=== PATIENT | female | born 1960 | race Caucasian/White ===

== ENCOUNTER 2017-03-13 11:49 | Emergency (ER) | payer MEDICAID ==
--- NOTE | 2017-03-13 12:08 | EDPHY ---
H & P Stated Complaint: FLU LIKE SYMPTOMS, JAUNDICE. SPRAINED LEFT FOOT Time Seen by Provider: 03/13/17 12:04 HPI/ROS: CHIEF COMPLAINT: Generalized weakness, cough HISTORY OF PRESENT ILLNESS: The patient has a history of HIV and hepatitis-C. She is currently not on anti-retroviral medications. She previously had an undetectable viral load. The patient was seen at [facility] several days ago for evaluation of a left foot sprain and had a negative x-ray at that point time. The patient attempted to reestablish care at the [facility] today but was referred to the ED as she reported generalized weakness, cough and questionable jaundice. The patient takes no regular medications. She denies any fever. She has no complaints of significant pain. She denies dysuria. REVIEW OF SYSTEMS: A comprehensive 10 point review of systems is otherwise negative aside from elements mentioned in the history of present illness. Source: Patient Exam Limitations: No limitations - Personal History Current Tetanus/Diphtheria Vaccine: Yes Current Tetanus Diphtheria and Acellular Pertussis (TDAP): Yes - Medical/Surgical History Hx Asthma: No Hx Chronic Respiratory Disease: No Hx Diabetes: No Hx Cardiac Disease: No Hx Renal Disease: No Hx Cirrhosis: No Hx Alcoholism: No Hx HIV/AIDS: No Hx Splenectomy or Spleen Trauma: No Other PMH: HEP C, HIV - Social History Smoking Status: Never smoked - Physical Exam Exam: General Appearance: Alert, no distress Eyes: Pupils equal and round no pallor or injection ENT, Mouth: Mucous membranes moist Respiratory: There are no retractions, lungs are clear to auscultation Cardiovascular: Regular rate and rhythm Gastrointestinal: Abdomen is soft and nontender, no masses, bowel sounds normal Neurological: A&O, normal motor function, normal sensory exam, normal cranial nerves Skin: Warm and dry, no rashes Musculoskeletal: Neck is supple nontender Extremities: symmetrical, full range of motion Constitutional: Initial Vital Signs Temperature (C) 36.7 C 03/13/17 11:59 Heart Rate 89 03/13/17 11:59 Respiratory Rate 17 03/13/17 11:59 Blood Pressure 141/78 H 03/13/17 11:59 O2 Sat (%) 95 03/13/17 11:59 O2 Delivery Mode Room Air Allergies/Adverse Reactions: No Known Allergies Allergy (Unverified 03/13/17 11:54) Home Medications: Medication Instructions Recorded TRIMPEX 100MG (*) 03/13/17 Medical Decision Making - Diagnostics Imaging Results: Imaging Impressions Chest X-Ray 03/13/17 13:02 Impression: Normal chest x-ray. ED Course/Re-evaluation: The patient presents to the ED with multiple complaints including cough, malaise and subjective jaundice. The patient is currently not on medications for HIV or hepatitis-C. She has stable vital signs and is well-appearing. I appreciate no significant ascites on her exam. Screening laboratory studies demonstrate no evidence of significant leukocytosis, anemia, coagulopathy, hepatitis or evidence of hemolysis. The patient has had a cough and reported history of pneumonia remotely. Her x- ray today demonstrates no evidence of an obvious infiltrate. The patient's flu test is negative. This point time I feel the patient is well-appearing and can be discharged home. She will be treated presumptively for acute bronchitis with an albuterol inhaler. She is referred to the [facility] to reestablish primary care. She will be discharged home with customary aftercare instructions and return precautions. Differential Diagnosis: Differential diagnosis considered includes pneumonia, influenza, hepatitis, peritonitis, anemia, renal failure - Data Points Laboratory Results: Laboratory Results 03/13/17 12:29 03/13/17 12:29 03/13/17 03/13/17 03/13/17 12:29 12:29 12:29 WBC RBC Hgb Hct MCV MCH MCHC RDW Plt Count MPV Neut % (Auto) Lymph % (Auto) Platte % (Auto) Eos % (Auto) Baso % (Auto) Nucleat RBC Rel Count Absolute Neuts (auto) Absolute Lymphs (auto) Absolute Monos (auto) Absolute Eos (auto) Absolute Basos (auto) Absolute Nucleated RBC Immature Gran % Immature Gran # PT 13.6 SEC SEC (12.0-15.0) INR 1.02 (0.83-1.16) APTT 30.8 SEC SEC (23.0-38.0) Sodium 141 mEq/L mEq/L (135-145) Potassium 4.8 mEq/L mEq/L (3.5-5.2) Chloride 105 mEq/L mEq/L (97-110) Carbon Dioxide 22 mEq/l mEq/l (22-31) Anion Gap 14 mEq/L mEq/L (8-16) BUN 10 mg/dL mg/dL (7-23) Creatinine 0.7 mg/dL mg/dL (0.6-1.0) Estimated GFR > 60 Glucose 85 mg/dL mg/dL (70-100) Calcium 9.7 mg/dL mg/dL (8.5-10.4) Total Bilirubin 0.7 mg/dL mg/dL (0.1-1.4) Conjugated Bilirubin 0.3 mg/dL mg/dL (0.0-0.5) Unconjugated Bilirubin 0.4 mg/dL mg/dL (0.0-1.1) AST 32 IU/L IU/L (14-46) ALT 26 IU/L IU/L (9-52) Alkaline Phosphatase 85 IU/L IU/L (38-126) Total Protein 7.7 g/dL g/dL (6.3-8.2) Albumin 4.3 g/dL g/dL (3.5-5.0) Nasal Influenza A PCR NEGATIVE FOR FLU A (NEGATIVE) Nasal Influenza B PCR NEGATIVE FOR FLU B (NEGATIVE) 03/13/17 12:29 WBC 4.69 10^3/uL 10^3/uL (3.80-9.50) RBC 4.19 10^6/uL 10^6/uL (4.18-5.33) Hgb 13.3 g/dL g/dL (12.6-16.3) Hct 38.7 % % (38.0-47.0) MCV 92.4 fL fL (81.5-99.8) MCH 31.7 pg pg (27.9-34.1) MCHC 34.4 g/dL g/dL (32.4-36.7) RDW 13.1 % % (11.5-15.2) Plt Count 167 10^3/uL 10^3/uL (150-400) MPV 10.4 fL fL (8.7-11.7) Neut % (Auto) 41.2 % % (39.3-74.2) Lymph % (Auto) 44.1 % % (15.0-45.0) Platte % (Auto) 9.4 % % (4.5-13.0) Eos % (Auto) 4.7 % % (0.6-7.6) Baso % (Auto) 0.4 % % (0.3-1.7) Nucleat RBC Rel Count 0.0 % % (0.0-0.2) Absolute Neuts (auto) 1.93 10^3/uL 10^3/uL (1.70-6.50) Absolute Lymphs (auto) 2.07 10^3/uL 10^3/uL (1.00-3.00) Absolute Monos (auto) 0.44 10^3/uL 10^3/uL (0.30-0.80) Absolute Eos (auto) 0.22 10^3/uL 10^3/uL (0.03-0.40) Absolute Basos (auto) 0.02 10^3/uL 10^3/uL (0.02-0.10) Absolute Nucleated RBC 0.00 10^3/uL 10^3/uL (0-0.01) Immature Gran % 0.2 % % (0.0-1.1) Immature Gran # 0.01 10^3/uL 10^3/uL (0.00-0.10) PT INR APTT Sodium Potassium Chloride Carbon Dioxide Anion Gap BUN Creatinine Estimated GFR Glucose Calcium Total Bilirubin Conjugated Bilirubin Unconjugated Bilirubin AST ALT Alkaline Phosphatase Total Protein Albumin Nasal Influenza A PCR Nasal Influenza B PCR Departure - Departure Disposition: Home, Routine, Self-Care Clinical Impression: Acute bronchitis, HIV (human immunodeficiency virus infection), Hepatitis C Condition: Good Instructions: Acute Bronchitis (ED) Additional Instructions: 1. Your laboratory testing demonstrates no significant abnormality. 2. Please use albuterol inhaler as directed for cough. 3. Please follow up with the [facility] for an outpatient appointment. Referrals: Rachelle Ray NP [Certified Nurse Practioner] - As per Instructions
[2017-03-13 12:33] LABS: PLATELET COUNT 167 10^3/uL (150-400)
[2017-03-13 12:43] LABS: INR 1.02 (0.83-1.16); PROTIME(PATIENT) 13.6 SEC (12.0-15.0)
[2017-03-13 14:18] VITALS: BP 135/78; PULSE 81; RESP 16; TEMP 98.6; O2SAT 97
== END 2017-03-13 14:19 | disposition home or self-care (01) ==
DX: J20.9 Acute bronchitis, unspecified (principal); B20 Human immunodeficiency virus [HIV] disease; B19.20 Unspecified viral hepatitis C without hepatic coma

== ENCOUNTER → 2017-03-18 | Outpatient (CLI) | payer MEDICAID | LOC: FIMAGING 14:03 | PROVIDERS: ATTEND Nurse Practitioner | DX: J98.09 Other diseases of bronchus, not elsewhere classified (principal) ==

== ENCOUNTER 2017-04-10 16:54 | Emergency (ER) | payer OTHER, MEDICAID ==
[2017-04-10 17:02] VITALS: RESP 16
--- NOTE | 2017-04-10 17:29 | EDPHY ---
H & P Time Seen by Provider: 04/10/17 17:18 HPI/ROS: CHIEF COMPLAINT: Fever and chills HISTORY OF PRESENT ILLNESS: Patient is a history of HIV and hepatitis-C. Presents with 2 days of fever and chills is associated with a sore throat. She also has little bit of head pressure was around her grandchildren 1 of them had strep. She is not hungry does not have any vomiting or diarrhea abdominal pain. Can swallow liquids. No ear symptoms or neck stiffness. No urinary symptoms. No skin rash. REVIEW OF SYSTEMS: Eye: no change in vision ENT: HPI no change in her voice Cardiac: no chest pain or syncope Pulmonary: no cough or SOB Abdomen: no vomiting, diarrhea, abdominal pain Musculoskeletal: no back pain Skin: no rash Neuro: HPI Constitutional: HPI : no urinary symptoms A comprehensive 10 point review of systems is otherwise negative aside from elements mentioned in the history of present illness. PAST MEDICAL HISTORY: HIV and hep C Social history: Former smoker General Appearance: Alert and conversant, cooperative. Eyes: No scleral icterus. ENT, Mouth: Normal mucous membranes. Normal tympanic membranes. Pharyngeal erythema but no exudate and uvula is midline, no trismus. Slight cervical adenopathy. Respiratory: Normal respiratory effort, breath sounds equal, lungs are clear to auscultation. Normal voice, not hoarse or stridorous. Cardiovascular: Regular rate and rhythm. Gastrointestinal: Abdomen is soft and non tender. Neurological: Alert, face symmetric, normal motor and sensory in extremities. No CVA tenderness. Skin: Warm and dry, no rashes. Musculoskeletal: No peripheral edema. Normal range of motion of the neck. Psychiatric: Not agitated. Emergency Department course/MDM: Patient looks alert and does not appear septic or toxic. I think meningitis is unlikely. Deep space neck infection unlikely. Plan test for strep and influenza as I would treat given her medical history with either positive. Check for UTI. Otherwise symptomatic treatment for probable viral syndrome. 175: Strep positive, patient is requesting injection, 1.2 million units of Bicillin LA ordered. Smoking Status: Never smoked Constitutional: Initial Vital Signs Temperature (C) 36.6 C 04/10/17 16:59 Heart Rate 72 04/10/17 16:59 Respiratory Rate 16 04/10/17 16:59 Blood Pressure 124/81 H 04/10/17 16:59 O2 Sat (%) 98 02/23/18 16:59 O2 Delivery Mode Room Air Allergies/Adverse Reactions: No Known Allergies Allergy (Unverified 03/13/17 11:54) Home Medications: Medication Instructions Recorded Albuterol [Ventolin Hfa Inhaler] 2 puffs IH QID PRN #1 mdi 03/13/17 TRIMPEX 100MG (*) 03/13/17 Tramadol HCl 50 mg PO BID PRN #20 tablet 03/13/17 Medical Decision Making - Data Points Laboratory Results: 04/10/17 04/10/17 17:27 17:25 Urine Color PALE YELLOW Urine Appearance HAZY Urine pH 6.0 (5.0-7.5) Ur Specific Goodman 1.005 (1.002-1.030) Urine Protein NEGATIVE (NEGATIVE) Urine Ketones NEGATIVE (NEGATIVE) Urine Blood NEGATIVE (NEGATIVE) Urine Nitrate NEGATIVE (NEGATIVE) Urine Bilirubin NEGATIVE (NEGATIVE) Urine Urobilinogen NEGATIVE EU EU (0.2-1.0) Ur Leukocyte Esterase 1+ H (NEGATIVE) Urine RBC 1-3 /hpf /hpf (0-3) Urine WBC 3-5 /hpf H /hpf (0-3) Ur Epithelial Cells 1+ /lpf /lpf (NONE-1+) Urine Bacteria TRACE /hpf H /hpf (NONE SEEN) Urine Mucus TRACE /lpf /lpf (NONE-1+) Urine Glucose NEGATIVE (NEGATIVE) Nasal Influenza A PCR NEGATIVE FOR FLU A (NEGATIVE) Nasal Influenza B PCR NEGATIVE FOR FLU B (NEGATIVE) RSV (PCR) NEGATIVE FOR RSV (NEGATIVE) Group A Strep Screen POSITIVE H (NEGATIVE) Medications Given: Discontinued Medications Acetaminophen (Tylenol) 650 mg PO EDNOW ONE Stop: 04/10/17 18:51 Last Admin: 04/10/17 18:52 Dose: 650 mg Ibuprofen (Motrin) 600 mg PO EDNOW ONE Stop: 04/10/17 18:24 Last Admin: 04/10/17 18:47 Dose: Not Given Penicillin G Benzathine (Bicillin L-A) 1,200,000 unit IM EDNOW ONE PRN Reason: Protocol Stop: 04/10/17 17:56 Last Admin: 04/10/17 18:39 Dose: 1,200,000 unit Departure - Departure Disposition: Home, Routine, Self-Care Clinical Impression: Pharyngitis Qualifiers: Pharyngitis/tonsillitis etiology: streptococcus Qualified Code(s): J02.0 - Streptococcal pharyngitis Condition: Good Instructions: Pharyngitis (ED) Additional Instructions: Strep test positive, Flu test negative. Referrals: Rachelle Ray NP [Primary Care Provider] - As per Instructions
[2017-04-10] MEDS ORDERED: BICILLIN L-A 1200000 UNIT/2 ML SYRINGE IM ONE (17:55)
[2017-04-10] MEDS: IBUPROFEN 600 MG TAB PO ONE ×2 (18:39→18:47)
[2017-04-10 18:42] VITALS: BP 115/76; PULSE 63; TEMP 97.5; O2SAT 95
[2017-04-10] MEDS ORDERED: ACETAMINOPHEN 325 MG TAB PO ONE (18:50)
== END 2017-04-10 18:52 | disposition home or self-care (01) ==
DX: J02.0 Streptococcal pharyngitis (principal); Z87.891 Personal history of nicotine dependence
CPT/HCPCS: 96372; 99284; J0561

== ENCOUNTER → 2017-04-28 | Outpatient (CLI) | payer OTHER, MEDICAID | LOC: FIMAGING 14:31 | PROVIDERS: ATTEND Nurse Practitioner | DX: N63.20 Unspecified lump in the left breast, unspecified quadrant (principal) ==

== ENCOUNTER 2017-06-09 18:00 | Emergency (ER) | payer OTHER, MEDICAID ==
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
[2017-06-09 18:37] LABS: PLATELET COUNT 211 10^3/uL (150-400)
[2017-06-09 18:46] LABS: INR 1.03 (0.83-1.16); PROTIME(PATIENT) 13.7 SEC (12.0-15.0)
[2017-06-09] MEDS ORDERED: IOPAMIDOL (ISOVUE-300) 100 ML BTL ONE (18:54)
[2017-06-09 19:44] VITALS: BP 139/76
[2017-06-09] MEDS ORDERED: ACETAMINOPHEN 325 MG TAB PO ONE (19:44)
== END 2017-06-09 20:00 | disposition home or self-care (01) ==
LOC: EDUNIT#
DX: S39.012A Strain of muscle, fascia and tendon of lower back, initial encounter (principal); B20 Human immunodeficiency virus [HIV] disease; V49.49XA Driver injured in collision with other motor vehicles in traffic accident, initial encounter; Y92.410 Unspecified street and highway as the place of occurrence of the external cause; Y99.8 Other external cause status; Y93.89 Activity, other specified
CPT/HCPCS: G0480; Q9967

== ENCOUNTER 2018-03-01 15:08 | Emergency (ER) | payer OTHER, MEDICAID ==
[2018-03-01 15:18] VITALS: BP 162/86
== END 2018-03-01 15:45 | disposition left against medical advice (07) ==
DX: Z53.21 Procedure and treatment not carried out due to patient leaving prior to being seen by health care provider (principal)

== ENCOUNTER 2018-05-18 19:42 | Emergency (ER) | payer OTHER, MEDICAID ==
--- NOTE | 2018-05-18 20:11 | EDPHY ---
H & P Stated Complaint: cough, fever, fatigue, flu exposure Time Seen by Provider: 05/18/18 20:03 HPI/ROS: CHIEF COMPLAINT: Flu-like symptoms HISTORY OF PRESENT ILLNESS: Patient is a 58-year-old female with a history of HIV and hepatitis C who began having body aches, fevers chills and a cough on Thursday. Her mother was diagnosed with the flu on Thursday. She has been feeling gradually worse each day until today when she took a dose of her mom's Tamiflu and Tylenol. She is worried however that she may have pneumonia because she has had pneumonia in the past and she feels like her breathing is tight. No history of asthma or emphysema. No GI symptoms. No chest pain. The patient's viral load was undetectable in December and her CD4 count has been stable close to 300. Severity: Moderate Modifying factors: Improved Tylenol REVIEW OF SYSTEMS: Constitutional: See HPI EENTM: See HPI Respiratory: See HPI Cardiac: denies: chest pain, irregular heart rate, lightheadedness, palpitations Gastrointestinal/Abdominal: denies: abdominal pain, diarrhea, nausea, vomiting, blood streaked stools Genitourinary: denies: dysuria, frequency, hematuria, pain Musculoskeletal: denies: joint pain, muscle pain Skin: denies: lesions, rash, jaundice, bruising Neurological: denies: headache, numbness, paresthesia, tingling, dizziness, weakness Hematologic/Lymphatic: denies: blood clots, easy bleeding, easy bruising Immunologic/allergic: denies: HIV/AIDS, transplant 10 systems reviewed and negative except as noted EXAM: GENERAL: Well-appearing, well-nourished and in no acute distress. HEAD: Atraumatic, normocephalic. EYES: Pupils equal round and reactive to light, extraocular movements intact, sclera anicteric, conjunctiva are normal. ENT: TMs normal, nares patent, oropharynx clear without exudates. Moist mucous membranes. NECK: Normal range of motion, supple without lymphadenopathy or JVD. LUNGS: Breath sounds clear to auscultation bilaterally and equal. No wheezes rales or rhonchi. HEART: Regular rate and rhythm without murmurs, rubs or gallops. ABDOMEN: Soft, nontender, normoactive bowel sounds. No guarding, no rebound. No masses appreciated. BACK: No CVA tenderness, no spinal tenderness, step-offs or deformities EXTREMITIES: Normal range of motion, no pitting or edema. No clubbing or cyanosis. NEUROLOGICAL: Cranial nerves II through XII grossly intact. Normal speech, normal gait. 5/5 strength, normal movement in all extremities, normal sensation , normal reflexes PSYCH: Normal mood, normal affect. SKIN: Warm, dry, normal turgor, no visible rashes or lesions. Source: Patient, Family Exam Limitations: No limitations - Personal History Current Tetanus Diphtheria and Acellular Pertussis (TDAP): Yes - Medical/Surgical History Hx Asthma: No Hx Chronic Respiratory Disease: No Hx Diabetes: No Hx Cardiac Disease: No Hx Renal Disease: No Hx Cirrhosis: No Hx Alcoholism: No Hx HIV/AIDS: Yes Hx Splenectomy or Spleen Trauma: No Other PMH: HEP C, HIV - Family History Significant Family History: No pertinent family hx - Social History Smoking Status: Current some day smoker Alcohol Use: None Drug Use: None Constitutional: Initial Vital Signs Temperature (C) 36.9 C 05/18/18 19:46 Heart Rate 90 05/18/18 19:46 Respiratory Rate 16 05/18/18 19:46 Blood Pressure 106/67 05/18/18 19:46 O2 Sat (%) 96 05/18/18 19:46 O2 Delivery Mode Room Air Allergies/Adverse Reactions: codeine Allergy (Verified 05/18/18 19:48) Home Medications: Medication Instructions Recorded Hiv Meds 03/01/18 Oseltamivir Phosphate [Tamiflu 75 75 mg PO BID #10 cap 05/18/18 mg (*)] Medical Decision Making - Diagnostics Imaging Results: Imaging Impressions Chest X-Ray 05/18/18 19:56 Impression: Findings most consistent with airways disease are noted with no superimposed pneumonia identified. Imaging: Discussed imaging studies w/ yardage caller Radiologist ED Course/Re-evaluation: Patient's x-ray is reassuring. She does have influenza. Will start on Tamiflu even though it is late because of her HIV status. She is happy with this plan. We discussed follow-up and indications for returning. Differential Diagnosis: Partial list of the Differential diagnosis considered include but were not limited to; influenza, upper respiratory tract infection, bronchitis, pneumonia and although unlikely based on the history and physical exam, I also considered sepsis, PCP pneumonia, fungal infection. - Data Points Laboratory Results: 04/02/19 19:52 Nasal Influenza A PCR FLU A DETECTED H (NEGATIVE) Nasal Influenza B PCR NEGATIVE FOR FLU B (NEGATIVE) Medications Given: Discontinued Medications Albuterol Sulfate (Proventil Inh Prepack) 1 mdi TAKEHOME EDNOW ONE Stop: 05/18/18 21:08 Last Admin: 05/18/18 21:20 Dose: 1 mdi Albuterol/Ipratropium (Duoneb) 3 ml IH EDNOW ONE Stop: 05/18/18 20:16 Last Admin: 05/18/18 20:27 Dose: 3 ml Oseltamivir Phosphate (Tamiflu) 75 mg PO EDNOW ONE Stop: 05/18/18 21:08 Last Admin: 05/18/18 21:20 Dose: 75 mg Departure - Departure Disposition: Home, Routine, Self-Care Clinical Impression: Influenza A Condition: Fair Instructions: Albuterol (By breathing), Influenza (ED) Referrals: Miranda Ruiz MD [Primary Care Provider] - 2-3 days, call for appt. Prescriptions: Oseltamivir Phosphate [Tamiflu 75 mg (*)] 75 mg PO BID #10 cap
[2018-05-18] MEDS ORDERED: IPRATROPIUM/ALBUTEROL 3 ML DEYVIAL IH ONE (20:15)
[2018-05-18] MEDS ORDERED: ALBUTEROL INH PREPACK MDI TAKEHOME ONE (21:07)
[2018-05-18] MEDS ORDERED: OSELTAMIVIR PHOSPHATE 75 MG CAP PO ONE (21:07)
[2018-05-18 21:30] VITALS: BP 115/66
== END 2018-05-18 21:30 | disposition home or self-care (01) ==
DX: J10.1 Influenza due to other identified influenza virus with other respiratory manifestations (principal); B19.20 Unspecified viral hepatitis C without hepatic coma